=== PATIENT | male | born 1935 | race African-American/Black ===

== ENCOUNTER → 2021-09-05 | Day surgery (SDC) | payer OTHER ==
[~2021-09-05] VITALS: Ht 179.1 cm; Wt 97.5 kg
[~2021-09-05] MED LIST: ACETAMINOPHEN 500MG TABLET ONE; ASPI-1497 PO; ATOR40TA70 PO; BACITRACIN 15GM TUBE TOP ONE; BUPIVACAINE HCL/PF 0.25% (2.5MG/ML) 10ML ONE; BUPIVACAINE HCL/PF 0.5% (5MG/ML) 10ML ONE; CEFAZOLIN SODIUM 1000MG/VIAL ONE; CLOP75TA33 PO; DEXAMETHASONE 4MG/ML 1ML VIAL ONE; DOXA4TAB3 PO; FENTANYL CITRATE/PF 50MCG/ML 2ML VIAL ONE; FLUT15.844 NS; HYDROMORPHONE HCL/PF 2MG/ML CPJ IV PRN; LIDOCAINE HCL/PF 1% 10 MG/ML 5ML VIAL ONE; METF-414 PO; ONDANSETRON HCL 4MG/2ML INJ ONE; PROPOFOL 200MG/20ML VIAL IV ONE; SODIUM CHLORIDE 0.9% 10ML VIAL ONE
== END | disposition home or self-care (01) ==
LOC: OR 05:34
PROVIDERS: ATTEND Urology
DX: N47.1 Phimosis (principal); E11.9 Type 2 diabetes mellitus without complications; I10 Essential (primary) hypertension; E78.00 Pure hypercholesterolemia, unspecified; Z79.82 Long term (current) use of aspirin; Z79.84 Long term (current) use of oral hypoglycemic drugs; Z79.899 Other long term (current) drug therapy; Z98.890 Other specified postprocedural states; Z20.822 Contact with and (suspected) exposure to COVID-19
CPT/HCPCS: 54161; 82962; 87426; J0690; J1100; J2405; J2704; J3010; J3490